=== PATIENT | female | born 1995 | race Caucasian/White ===

== ENCOUNTER → 2018-11-25 17:58 | Observation (INO) ==
[2018-11-25 16:15] LABS: Amphetamine Screen,Urine Negative ng/mL (Cutoff=1000); Barbiturate Screen,Urine Negative ng/mL (Cutoff=200); Benzodiazepines Screen,Urine Negative ng/mL (Cutoff=200); Cannabinoid Screen,Urine Negative ng/mL (Cutoff = 50); Cocaine Screen,Urine Negative ng/mL (Cutoff= 300); Opiate Screen,Urine Negative ng/mL (Cutoff=300); Phencyclidine Screen,Urine Negative ng/mL (Cutoff=25)
[2018-11-25 17:13] LABS: Bilirubin,Urine Negative (Negative); Blood,Urine Large (Negative); Clarity,Urine Cloudy (Clear); Color,Urine Yellow (Yellow); Glucose,Urine (UA) Normal (Normal); Ketones,Urine Negative (Negative); Leukocyte Esterase,Urine Large (Negative); Nitrite,Urine Negative (Negative); Protein,Urine Trace mg/dL (Neg-Trace); Specific Gravity,Urine 1.013 (1.010-1.025); Urobilinogen,Urine Normal (Normal)
[2018-11-25 17:15] LABS: Bacteria,Urine Moderate per hpf (None-Few); Hyaline Casts,Urine None Seen per lpf (None-Few); RBC,Urine TNTC per hpf (0-3); Squamous Epithelial Cell,Urine Many per lpf (None-Few); WBC,Urine 50-100 per hpf (0-3)
--- NOTE | 2018-11-25 17:31 | OB/GYN Progress Note ---
Date of Encounter: 11/25/18 Time of Encounter: 17:29 - Assessment and Plan (1) 39 weeks gestation of Current Visit: Yes Status: Acute NST reactive. FHR baseline 140 bpm. Reviewed kick counts. Patient scheduled for IOL in 2 days. Discharge home with return precautions. (2) Urethral pain Current Visit: Yes Status: Acute Clean catch urine with large blood and suspicious for possible stone. Culture ordered. No other s/sx of UTI. Reviewed hydration. Discharge home with supplies to strain urine. Subjective - Subjective Principal diagnosis: sharp vaginal/urethral pain Interval history: 23 y/o who presents at 39w1d with complaint of vaginal pain and sharp shooting pain that she describes as pain in her urethra. She reports the pain began this morning and has never happened before. She reports the pain is constant and the shooting pains are worse when she is walking. She denies pain or burning with urination. Denies VB, LOF or Ctx. Reports good FM. Antepartum ROS: new complaints, movement normal, no loss of fluid, no vaginal bleeding, no contractions Objective - Vital Signs Vital Signs: Intake and Output 11/25/18 11/25/18 11/25/18 07:59 15:59 23:59 Other: Weight 71.6 kg Patient Weight 11/25/18 23:59 Weight 71.6 kg - Exam FHR comments: NST reactive, FHR baseline 140 bpm Auscultation: bilateral: normal Abdomen: Present: normal appearance, soft, gravid Cervical dilation: 1-2cm Cervix effacement: 50% station: -2 - Labs Labs: Abnormal lab results Urine Clarity Cloudy (Clear) A 11/25/18 17:00 Urine Blood Large (Negative) H 11/25/18 17:00 Ur Leukocyte Esterase Large (Negative) H 11/25/18 17:00 Urine Microscopic RBC TNTC per hpf (0-3) H 11/25/18 17:00 Urine Microscopic WBC 50-100 per hpf (0-3) H 11/25/18 17:00 Ur Squamous Epith Cells Many per lpf (None-Few) H 11/25/18 17:00 Urine Bacteria Moderate per hpf (None-Few) H 11/25/18 17:00 Ur Culture Indicated? NO. (NO) A 11/25/18 17:00
[~2018-11-25 17:58] MED LIST: Acetaminophen 325 MG TABLET PO ONE
== END | disposition home or self-care (01) ==
LOC: 1NENULAB
PROVIDERS: ADMIT Registered Nurse; ATTEND Registered Nurse